=== PATIENT | male | born 1970 | race Caucasian/White ===

== ENCOUNTER → 2017-04-17 | Outpatient (CLI) | payer MEDICARE, MEDICAID ==
[~2017-04-17] MED LIST: AUGMENTIN 875 M1 TAB PO; GENOPTIC OP; LIQUID TEARS 1515 ML OP; LISINOPRIL; VANCOMYCIN 11 G/VIA1 IV
== END ==
LOC: COL.RAD 12:28
DX: G93.89 Other specified disorders of brain (principal); Z85.72 Personal history of non-Hodgkin lymphomas; Z85.841 Personal history of malignant neoplasm of brain; Z98.890 Other specified postprocedural states
CPT/HCPCS: Q9967

== ENCOUNTER → 2021-04-10 | Outpatient (CLI) | payer MEDICARE, MEDICAID ==
[~2021-04-10] MED LIST changes: +PREDNISONE20 MG PO; +VALTREX1 GM PO
== END ==
LOC: COL.RAD 13:58
DX: R59.0 Localized enlarged lymph nodes (principal)